=== PATIENT | male | born 1970 | race Caucasian/White ===

== ENCOUNTER → 2018-08-12 16:01 | Outpatient (CLI) | payer BC, SELFPAY ==
--- NOTE | 2018-08-12 16:04 | DI.RAD.S_ITS ---
PROCEDURE: XR LUMBAR SPINE MIN 4V INDICATIONS: hip pain TECHNIQUE: 5 views of the lumbar spine were acquired. COMPARISON: None. FINDINGS: Bones: 5 nonrib-bearing vertebrae are present. There is trace retrolisthesis of L3 on L4, L4 and L5. Moderate disc and foraminal narrowing are present at L5-S1, moderate disc space narrowing at L4-5. Anterior osteophytes are present at L4 and L5. No vertebral body compression fractures. Sclerotic focus is noted overlying the right iliac bone. Soft tissues: Overlying bowel gas pattern is normal. No suspicious soft tissue calcifications. Oblique images: No pars defects. IMPRESSION: Early degenerative changes as above. Sclerotic focus overlying the right iliac bone suspicious for a bone island. However, these areas of concern, further evaluation bone scan may be obtained. Dictated by: Ilda Tse M.D. on 08/12/2018 at 17:24 Approved by: Ilda Tse M.D. on 08/12/2018 at 17:25
--- NOTE | 2018-08-12 16:04 | DI.RAD.S_ITS ---
PROCEDURE: XR SACRUM COCCYX MIN 2V INDICATIONS: l hip pain TECHNIQUE: 3 views of the sacrum and coccyx acquired. COMPARISON: None. FINDINGS: Bones: No fractures or dislocations. Degenerative changes are noted in the lower lumbar spine. Sclerotic focus is noted overlying the right iliac bone. Minimal early degenerative narrowing of the hip joints bilaterally. Soft tissues: Visualized bowel gas pattern is normal. No suspicious soft tissue densities. IMPRESSION: Sclerotic focus is noted overlying the right iliac bone this could represent a bone island. However, as clinically indicated, bone scan may be obtained for further evaluation. Dictated by: Ilda Tse M.D. on 08/12/2018 at 17:25 Approved by: Ilda Tse M.D. on 08/12/2018 at 17:25
--- NOTE | 2018-08-12 16:04 | DI.RAD.S_ITS ---
PROCEDURE: XR HIP W PEL IF DONE LT MIN 4V INDICATIONS: l hip pain TECHNIQUE: AP pelvis with lateral view(s) of the bilateral hip(s). COMPARISON: None. FINDINGS: Bones: No fractures or dislocations. Pelvic ring appears intact. Rounded sclerotic focus is present projecting over the right iliac bone. No priors are available for comparison. Minimal bilateral early degenerative hip joint space narrowing. Soft tissues: The visualized bowel gas pattern is normal. No suspicious soft tissue calcifications. IMPRESSION: No acute osseous abnormality. Focus of sclerosis overlying the right iliac bone. This could represent a bone island. However, no priors are available for comparison. If this area is of concern, bone scan may be obtained. Dictated by: Ilda Tse M.D. on 08/12/2018 at 17:23 Approved by: Ilda Tse M.D. on 08/12/2018 at 17:24
== END ==
PROVIDERS: Visit Provider Physician Assistant
DX: M25.552 Pain in left hip (principal); M47.816 Spondylosis without myelopathy or radiculopathy, lumbar region; M47.817 Spondylosis without myelopathy or radiculopathy, lumbosacral region
CPT/HCPCS: 72110; 72220; 73522

== ENCOUNTER → 2018-09-19 09:13 | Outpatient (CLI) | payer BC, SELFPAY ==
[2018-09-19 10:25] LABS: Alanine Aminotransferase 30 IU/L (21-72); Albumin 4.4 g/dL (3.5-5.0); Albumin Globulin Ratio 1.7 (1.0-2.8); Alkaline Phosphatase 75 U/L (38-126); Aspartate Aminotransferase 23 IU/L (17-59); BUN Creatinine Ratio 11.8 (6-22); Bilirubin Total 0.5 mg/dL (0.2-1.3); Blood Urea Nitrogen 13 mg/dL (9-20); Calcium 9.6 mg/dL (8.4-10.2); Carbon Dioxide 26 mmol/L (22-32); Chloride 108 mmol/L (98-107); Cholesterol 261 mg/dL (140-199); Estimated Glomerular Filt Rate > 60.0 mL/min (>60); Globulin 2.6 g/dL (1.7-4.1); Glucose 108 mg/dL (70-100); HDL Cholesterol 28 mg/dL (40-60); HEMOLYSIS < 15 (0-50); Potassium 4.7 mmol/L (3.4-5.1); Sodium 142 mmol/L (137-145); Triglycerides 401 mg/dL (35-150)
== END ==
PROVIDERS: Visit Provider Physician Assistant
DX: E78.5 Hyperlipidemia, unspecified (principal)
CPT/HCPCS: 36415; 80053; 80061

== ENCOUNTER → 2018-11-11 08:03 | Outpatient (CLI) | payer BC, SELFPAY ==
[2018-11-11 09:05] LABS: Alanine Aminotransferase 61 IU/L (21-72); Albumin 4.4 g/dL (3.5-5.0); Albumin Globulin Ratio 1.6 (1.0-2.8); Alkaline Phosphatase 50 U/L (38-126); Aspartate Aminotransferase 31 IU/L (17-59); BUN Creatinine Ratio 19.1 (6-22); Bilirubin Total 0.4 mg/dL (0.2-1.3); Blood Urea Nitrogen 21 mg/dL (9-20); Calcium 9.8 mg/dL (8.4-10.2); Carbon Dioxide 26 mmol/L (22-32); Chloride 105 mmol/L (98-107); Cholesterol 238 mg/dL (140-199); Estimated Glomerular Filt Rate > 60.0 mL/min (>60); Globulin 2.7 g/dL (1.7-4.1); Glucose 121 mg/dL (70-100); HDL Cholesterol 38 mg/dL (40-60); HEMOLYSIS < 15 (0-50); LDL Cholesterol Calculated 153 mg/dL (<100); Potassium 4.4 mmol/L (3.4-5.1); Sodium 142 mmol/L (137-145); Total Protein 7.1 g/dL (6.3-8.2); Triglycerides 233 mg/dL (35-150)
== END ==
PROVIDERS: Visit Provider Physician Assistant
DX: E78.5 Hyperlipidemia, unspecified (principal)
CPT/HCPCS: 36415; 80053; 80061

== ENCOUNTER → 2019-09-25 08:29 | Outpatient (CLI) | payer BC, SELFPAY ==
[2019-09-25 10:57] LABS: Alanine Aminotransferase 34 IU/L (<50); Albumin 4.6 g/dL (3.5-5.0); Albumin Globulin Ratio 1.8 (1.0-2.8); Alkaline Phosphatase 78 U/L (38-126); Aspartate Aminotransferase 24 IU/L (17-59); BUN Creatinine Ratio 14.2 (6-22); Bilirubin Total 0.4 mg/dL (0.2-1.3); Blood Urea Nitrogen 15 mg/dL (9-20); Calcium 9.8 mg/dL (8.4-10.2); Carbon Dioxide 24 mmol/L (22-32); Chloride 107 mmol/L (98-107); Cholesterol 244 mg/dL (140-199); Estimated Glomerular Filt Rate > 60.0 mL/min (>60); Globulin 2.6 g/dL (1.7-4.1); Glucose 113 mg/dL (70-100); HDL Cholesterol 30 mg/dL (40-60); HEMOLYSIS < 15 (0-50); LDL Cholesterol Calculated 154 mg/dL (<100); Potassium 4.5 mmol/L (3.4-5.1); Sodium 140 mmol/L (137-145); Total Protein 7.2 g/dL (6.3-8.2); Triglycerides 299 mg/dL (35-150)
[2019-09-25 11:13] LABS: Thyroid Stimulating Hormone 8.06 uIU/mL (0.47-4.68)
[2019-09-25 11:26] LABS: Prostate Specific Antigen Scrn 0.206 ng/mL (0.1-4.0)
[2019-09-25 11:28] LABS: Testosterone 251 ng/dL (71.8-623)
[2019-09-26 08:36] LABS: PSA, Total 0.2 ng/mL (0.0-4.0)
== END ==
PROVIDERS: PCP Physician Assistant; Referring Provider Physician Assistant; Visit Provider Physician Assistant
DX: Z12.5 Encounter for screening for malignant neoplasm of prostate (principal); E78.5 Hyperlipidemia, unspecified; N52.9 Male erectile dysfunction, unspecified; R39.9 Unspecified symptoms and signs involving the genitourinary system; C61 Malignant neoplasm of prostate
CPT/HCPCS: 36415; 80053; 80061; 84153; 84154; 84403; 84443; G0103

== ENCOUNTER → 2020-03-24 11:27 | Outpatient (CLI) | payer BC, SELFPAY ==
--- NOTE | 2020-03-24 | DI.CT.S_ITS ---
PROCEDURE: CT SINUS SCREEN WO CON INDICATIONS: Chronic pansinusitis TECHNIQUE: Noncontrast 3.0 mm axial images acquired from the frontal sinuses to the mid-sella, with coronal and sagittal reformats. For radiation dose reduction, the following was used: automated exposure control, adjustment of mA and/or kV according to patient size. COMPARISON: None. FINDINGS: Image quality: Excellent. Maxillary Sinuses: Moderate mucosal thickening is seen within the maxillary sinuses. There is an air-fluid level seen within right maxillary sinus. The medial vivar of the maxillary sinuses are demineralized. Ethmoid Air Cells: Moderate to prominent mucosal thickening is seen within ethmoid air cells. Several of the ethmoid air cell septations are demineralized. Sphenoid Sinuses: No bony remodeling or destruction. A small amount of frothy material can be seen within the posterior dependent sphenoid sinuses. Frontal Sinuses: No bony remodeling or destruction. Mild mucosal thickening is seen within the inferomedial frontal sinuses. Ostiomeatal Complexes: Occluded by soft tissue thickening, particularly on the right side. The ostiomeatal complexes are demineralized. Miscellaneous: Visualized intra-orbital contents are normal. Soft tissue is seen within the nasal cavity, which is consistent with polyp disease. 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 Mild leftward nasal septal deviation can be seen. IMPRESSION: Occluded ostiomeatal complexes. Paranasal sinus disease is seen, which is worst within the maxillary sinuses and the ethmoid air cells. Areas of bony demineralization are seen, which are consistent with chronic sinusitis. 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 Dictated by: Hang Todd M.D. on 03/24/2020 at 12:10 Approved by: Hang Todd M.D. on 03/24/2020 at 12:13
== END ==
PROVIDERS: PCP Physician Assistant; Referring Provider Otolaryngology; Visit Provider Otolaryngology
DX: J32.4 Chronic pansinusitis (principal); J34.89 Other specified disorders of nose and nasal sinuses; J33.9 Nasal polyp, unspecified; J34.2 Deviated nasal septum
CPT/HCPCS: 70486